=== PATIENT | female | born 1985 | race African-American/Black ===

== ENCOUNTER 2017-03-19 10:55 | Emergency (ER) | payer SELFPAY ==
[2017-03-19 11:03] VITALS: BP 116/67
--- NOTE | 2017-03-19 11:41 | PHYS DOC ---
Past Medical History Past Medical History: STD, Other Additional Past Medical Histor: BV, vaginal yeast infection Past Surgical History: Tubal ligation Alcohol Use: Rarely Drug Use: None Adult General Chief Complaint Chief Complaint: SKIN RASH/ABSCESS [facility] HPI Patient is a 31 year old female presents to the emergency department stating that she shaved her perineal area 1-2 days ago with intermittent shaving cream. She states since that time she's been having irritation and itching. She denies any vaginal drainage or discharge. She denies any odor. Patient states that she is very sensitive to things with that have progressed. Patient states that she has not tried to use any topical lotions or creams. She has not taken any Benadryl to help with the itching or irritation. Review of Systems Review of Systems Constitutional: Denies fever or chills [] Eyes: Denies change in visual acuity, redness, or eye pain [] HENT: Denies nasal congestion or sore throat [] Respiratory: Denies cough or shortness of breath [] Cardiovascular: No additional information not addressed in HPI [] GI: Denies abdominal pain, nausea, vomiting, bloody stools or diarrhea [] : Denies dysuria or hematuria. Complaint of vaginal irritation. Musculoskeletal: Denies back pain or joint pain [] Integument: Denies rash or skin lesions [] Neurologic: Denies headache, focal weakness or sensory changes [] Endocrine: Denies polyuria or polydipsia [] Allergies Allergies Allergies Coded Allergies Type Severity Reaction Last Updated Verified tramadol Allergy Intermediate THROAT ITCHING 10/22/14 Yes allantoin Allergy Mild Swelling 05/22/15 Yes benzalkonium chloride Allergy Mild Swelling 05/22/15 Yes benzocaine Allergy Mild Swelling 05/22/15 Yes carbamide peroxide Allergy Mild Swelling 05/22/15 Yes Physical Exam Physical Exam Constitutional: Well developed, well nourished, no acute distress, non-toxic appearance. [] HENT: Normocephalic, atraumatic, bilateral external ears normal, oropharynx moist, no oral exudates, nose normal. [] Eyes: PERRLA, EOMI, conjunctiva normal, no discharge. [] Neck: Normal range of motion, no tenderness, supple, no stridor. [] Cardiovascular:Heart rate regular rhythm, no murmur [] Lungs & Thorax: Bilateral breath sounds clear to auscultation [] Skin: Warm, dry, no erythema, no rash. No significant rash noted in the perineal area. Patient does appear to have shaved recently. No redness no drainage no discharge noted. Back: No tenderness Extremities: No tenderness, no cyanosis, no clubbing, ROM intact, no edema. [] Neurologic: Alert and oriented X 3, normal motor function, normal sensory function, no focal deficits noted. [] Psychologic: Affect normal, judgement normal, mood normal. [] Current Patient Data Vital Signs Vital Signs Date Time Temp Pulse Resp B/P (MAP) Pulse Ox O2 Delivery O2 Flow Rate FiO2 03/19/17 11:03 98.2 67 18 96 Room Air 98.2 EKG EKG [] Radiology/Procedures Radiology/Procedures [] Course & Med Decision Making Course & Med Decision Making Pertinent Labs and Imaging studies reviewed. (See chart for details) Patient was recommended to use Dove soap. She was also recommended to use Benadryl to help with itching and irritation. She was instructed this medication will cause drowsiness do not take any be alert and oriented. Patient agrees with discharge instructions, treatment regimens and follow-up recommendations. Signs and symptoms to return back to emergency department as been provided. All questions and concerns been answered at patient's bedside. [] Dragon Disclaimer Dragon Disclaimer This electronic medical record was generated, in whole or in part, using a voice recognition dictation system. Departure Departure Impression: Primary Impression: Perineal irritation Disposition: HOME, SELF-CARE Condition: STABLE Referrals: NO PCP (PCP) Patient Instructions: Rash, Timm-er-Rkjy Additional Instructions: Activity as tolerated. Benadryl 25 mg every 6 hours as needed for itching and irritation. This medication will cause drowsiness do not take any be alert and oriented. Keep the area clean dry and cool. You may use Dove soap to clean the area. Keep the area cool as this will prevent itching. Follow-up primary care physician next week. Return back to emergency prior signs symptoms of become worse. HIEN LEWIS APRN Mar 19, 2017 11:41
== END 2017-03-19 11:45 | disposition home or self-care (01) ==
LOC: ER 10:55
DX: L29.3 Anogenital pruritus, unspecified (principal); Z98.51 Tubal ligation status; Z88.6 Allergy status to analgesic agent; Z88.4 Allergy status to anesthetic agent; Z88.8 Allergy status to other drugs, medicaments and biological substances
CPT/HCPCS: 99281

== ENCOUNTER 2017-03-21 09:11 | Emergency (ER) | payer SELFPAY ==
[~2017-03-21] VITALS: Ht 170.2 cm; Wt 72.6 kg
--- NOTE | 2017-03-21 09:24 | PHYS DOC ---
Past Medical History Past Medical History: STD, Other Additional Past Medical Histor: BV, vaginal yeast infection Past Surgical History: Tubal ligation Alcohol Use: Rarely Drug Use: None Adult General Chief Complaint Chief Complaint: VAGINAL PROBLEM HPI HPI Patient is a 31 year old -[place] female who presents with vaginal discharge. She states she's been on amoxicillin for the last 6 days and 2 days ago started having a white vaginal discharge with itching. She denies any dysuria, she denies being . She tried Monistat at 2 AM this morning and stated she didn't feel any better so she decided to come the ER. Review of Systems Review of Systems Constitutional: Denies fever or chills [] Eyes: Denies change in visual acuity, redness, or eye pain [] HENT: Denies nasal congestion or sore throat [] Respiratory: Denies cough or shortness of breath [] Cardiovascular: No additional information not addressed in HPI [] GI: Denies abdominal pain, nausea, vomiting, bloody stools or diarrhea [] : Denies dysuria or hematuria [] Musculoskeletal: Denies back pain or joint pain [] Integument: Denies rash or skin lesions [] Neurologic: Denies headache, focal weakness or sensory changes [] Endocrine: Denies polyuria or polydipsia [] Current Medications Current Medications Current Medications Medications (Trade) Dose Ordered Sig/Griselda Start Time Stop Time Status Last Admin Dose Admin Fluconazole (Diflucan) 100 mg STK-MED ONCE 03/21/17 10:37 03/21/17 10:38 DC Allergies Allergies Allergies Coded Allergies Type Severity Reaction Last Updated Verified allantoin Allergy Intermediate Swelling 03/21/17 Yes benzalkonium chloride Allergy Intermediate Swelling 03/21/17 Yes benzocaine Allergy Intermediate Swelling 03/21/17 Yes carbamide peroxide Allergy Intermediate Swelling 03/21/17 Yes tramadol Allergy Intermediate THROAT ITCHING 10/22/14 Yes Physical Exam Physical Exam Constitutional: Well developed, well nourished, no acute distress, non-toxic appearance. [] HENT: Normocephalic, atraumatic, bilateral external ears normal, oropharynx moist, no oral exudates, nose normal. [] Eyes: PERRLA, EOMI, conjunctiva normal, no discharge. [] Neck: Normal range of motion, no tenderness, supple, no stridor. [] Cardiovascular:Heart rate regular rhythm, no murmur [] Lungs & Thorax: Bilateral breath sounds clear to auscultation [] Abdomen/pelvic: Bowel sounds normal, soft, no tenderness, no masses, no pulsatile masses. Normal external genitalia, no cervical motion tenderness, white thick discharge noted Skin: Warm, dry, no erythema, no rash. [] Back: No tenderness, no CVA tenderness. [] Extremities: No tenderness, no cyanosis, no clubbing, ROM intact, no edema. [] Neurologic: Alert and oriented X 3, normal motor function, normal sensory function, no focal deficits noted. [] Psychologic: Affect normal, judgement normal, mood normal. [] Current Patient Data Vital Signs Vital Signs Date Time Temp Pulse Resp B/P (MAP) Pulse Ox O2 Delivery O2 Flow Rate FiO2 03/21/17 09:32 98.4 75 16 124/91 (102) 98 Room Air 98.4 Lab Values Laboratory Tests Test 03/21/17 09:27 03/21/17 09:33 POC Urine HCG, Qualitative Hcg negative (Negative) Urine Collection Type Void Urine Color Yellow Urine Clarity Clear Urine pH 6.5 Urine Specific Morgan 1.010 Urine Protein Negative mg/dL (NEG-TRACE) Urine Glucose (UA) Negative mg/dL (NEG) Urine Ketones (Stick) Negative mg/dL (NEG) Urine Blood Negative (NEG) Urine Nitrite Negative (NEG) Urine Bilirubin Negative (NEG) Urine Urobilinogen Dipstick 0.2 mg/dL (0.2 mg/dL) Urine Leukocyte Esterase Negative (NEG) Urine RBC 0 /HPF (0-2) Urine WBC 0 /HPF (0-4) Urine Squamous Epithelial Cells Few /LPF Urine Bacteria 0 /HPF (0-FEW) Microbiology 03/21/17 Wet Prep - Final, Complete Microbiology 03/21/17 Wet Prep - Final, Complete EKG EKG [] Radiology/Procedures Radiology/Procedures RUN DATE: 03/21/17 PAGE 1 RUN TIME: 952 [facility] [address] [place] [address] Garry Duff M.D., Flat Bed Knitter PATIENT: MARIANA TAMAYO ACCT: [id number] LOC: LD U : [id number] AGE/SX: 31/ ROOM: REG : 03/21/[address]: CAIN BAILEY MD : 1985 BED: DIS : STATUS: PRE ER TLOC: SPEC #: [id number] CEASAR: 03/21/17 STATUS: COMP REQ #: [id number] RECD: 03/21/[address] [facility] [address]: CAIN BAILEY MD SOURCE: VAGINAL ENTR: 03/21/[address] [facility] [address]: AMRIK BALBUENA SPDESC: ORDERED: WET PREP COMMENTS: Has specimen been collected/obtained? Y Procedure Result WET PREP Final YEAST PRESENT TRICHOMONAS NONE SEEN CLUE CELLS NONE SEEN END OF REPORT Impressions: Vaginal yeast infection Course & Med Decision Making Course & Med Decision Making Pertinent Labs and Imaging studies reviewed. (See chart for details) Pelvic exam was performed with video production engineer, nurse Aide was present in addition to her at all times. She has yeast per lab. We'll treat with Diflucan 150 mg 1 and discharged home. She's to follow-up with [employer]. Return precautions given. Dragon Disclaimer Dragon Disclaimer This electronic medical record was generated, in whole or in part, using a voice recognition dictation system. Departure Departure Impression: Primary Impression: Vaginal yeast infection Disposition: HOME, SELF-CARE Condition: STABLE Referrals: NO PCP (PCP) Patient Instructions: Candidal Vulvovaginitis, [id number] Additional Instructions: You have a yeast infection we gave the 1 pill to treat it. You can use over-the- counter topical creams over the next couple days to help with the itching and burning. You should follow-up with your [employer] physician if not better within the next 4-5 days. CAIN BAILEY MD Mar 21, 2017 09:24
[2017-03-21 10:29] LABS: BILIRUBIN,URINE NEGATIVE (NEG); GLUCOSE,URINE NEGATIVE (NEG); NITRITE,URINE NEGATIVE (NEG); PH,URINE 6.5; PROTEIN,URINE NEGATIVE (NEG-TRACE); UROBILINOGEN,URINE 0.2 mg/dL (0.2 mg/dL)
[2017-03-21] MEDS ORDERED: FLUCONAZOLE 100 MG TABLET. ONE (10:37)
[2017-03-21 10:40] LABS: BACTERIA,URINE 0 /HPF (0-FEW); RBC,URINE 0 /HPF (0-2); SQUAMOUS EPITHELIAL CELL,UR FEW /LPF; WBC,URINE 0 /HPF (0-4)
[2017-03-21 10:45] VITALS: BP 114/78
[2017-03-21] MEDS ORDERED: FLUCONAZOLE 100 MG TABLET. PO ONE (10:45)
== END 2017-03-21 11:00 | disposition home or self-care (01) ==
LOC: ER 09:11
DX: B37.3 Candidiasis of vulva and vagina (principal); Z88.4 Allergy status to anesthetic agent; Z88.5 Allergy status to narcotic agent; Z88.8 Allergy status to other drugs, medicaments and biological substances
CPT/HCPCS: 81001; 81025; 87491; 87591; 99284; Q0111

== ENCOUNTER 2017-07-04 10:51 | Emergency (ER) | payer SELFPAY | END 2017-07-04 12:02 | disposition home or self-care (01) | LOC: ER 10:51 | DX: H10.9 Unspecified conjunctivitis (principal); Z88.8 Allergy status to other drugs, medicaments and biological substances; Z88.5 Allergy status to narcotic agent | CPT/HCPCS: 99283 ==

== ENCOUNTER 2017-10-03 14:04 | Emergency (ER) | payer SELFPAY ==
[2017-10-03] MEDS ORDERED: 0.9 % SODIUM CHLORIDE 10 ML DISP.SYRIN. IV (14:15)
[2017-10-03] MEDS: ASPIRIN CHEWABLE 81 MG TABLET. PO (14:30)
[2017-10-03] MEDS ORDERED: CONTRAST GIVEN MC (14:30)
[2017-10-03] MEDS: IV NORMAL SALINE 1000ML BAG 1,000 ML IV (14:40)
[2017-10-03 14:57] LABS: ADD MAN DIFF? NO
[2017-10-03 14:59] LABS: BASO % 1 % (0-3); EOS # 0.2 x10^3/uL (0.0-0.7); EOS % 4 % (0-3); HEMATOCRIT 37.9 % (36.0-47.0); HEMOGLOBIN 12.5 g/dL (12.0-15.5); LYMPH # 2.7 x10^3/uL (1.0-4.8); LYMPH % 47 % (24-48); MEAN CORPUSCULAR HEMOGLOBIN 27 pg (25-35); MEAN CORPUSCULAR HGB CONC 33 g/dL (31-37); MEAN CORPUSCULAR VOLUME 83 fL (79-100); MONO # 0.5 x10^3/uL (0.0-1.1); MONO % 10 % (0-9); NEUT # 2.2 x10^3uL (1.8-7.7); NEUT % 38 % (31-73); PLATELET COUNT 214 x10^3/uL (140-400); RED BLOOD COUNT 4.56 x10^6/uL (3.50-5.40); RED CELL DISTRIBUTION WIDTH 14.4 % (11.5-14.5); WHITE BLOOD COUNT 5.7 x10^3/uL (4.0-11.0)
[2017-10-03 15:17] LABS: ANION GAP 11 (6-14); BLOOD UREA NITROGEN 8 mg/dL (7-20); CALCIUM 8.7 mg/dL (8.5-10.1); CARBON DIOXIDE 23 mmol/L (21-32); CHLORIDE 105 mmol/L (98-107); CREATININE 0.7 mg/dL (0.6-1.0); GFR 118.9; GLUCOSE 96 mg/dL (70-99); POTASSIUM 3.5 mmol/L (3.5-5.1); SODIUM 139 mmol/L (136-145)
[2017-10-03 15:23] LABS: ALBUMIN 3.6 g/dL (3.4-5.0); ALK PHOS 47 U/L (46-116); ALT (SGPT) 22 U/L (14-59); AST (SGOT) 13 U/L (15-37); DIRECT BILIRUBIN < 0.1 mg/dL (0.0-0.2); LIPASE 88 U/L (73-393); MAGNESIUM 1.6 mg/dL (1.8-2.4); TOTAL BILIRUBIN 0.3 mg/dL (0.2-1.0); TOTAL PROTEIN 6.9 g/dL (6.4-8.2)
[2017-10-03 15:25] LABS: TROPONINI < 0.017 ng/mL (0.000-0.055)
[2017-10-03 15:31] LABS: CKMB INDEX 0.5 % (0-4); CKMB MASS 0.5 ng/mL (0.0-3.6); CREATINE KINASE 101 U/L (26-192)
[2017-10-03 15:31] LABS: NT-PRO BNP 22 pg/mL (0-124)
[2017-10-03] MEDS: IOHEXOL 300 MG/ML 100ML VIAL. IV (16:03)
[2017-10-03 16:14] LABS: URINE HCG POC HCG NEGATIVE (Negative)
[2017-10-03] MEDS: MORPHINE SULFATE 4 MG/ML DISP.SYRIN. IV/SQ (16:15)
[2017-10-03 16:29] LABS: BILIRUBIN,URINE NEGATIVE (NEG); CLARITY,URINE CLEAR; COLOR,URINE YELLOW; GLUCOSE,URINE NEGATIVE (NEG); NITRITE,URINE NEGATIVE (NEG); PH,URINE 6.5; PROTEIN,URINE NEGATIVE (NEG-TRACE); UROBILINOGEN,URINE 0.2 mg/dL (0.2 mg/dL)
[2017-10-03 16:41] LABS: AMPHETAMINE/METHAMPHETAMINE NEG (NEG); BARBITURATES NEG (NEG); BENZODIAZEPINES NEG (NEG); CANNABINOIDS NEG (NEG); COCAINE NEG (NEG); METHADONE NEG (NEG); OPIATES NEG (NEG); PHENCYCLIDINE NEG (NEG)
[2017-10-03 16:42] LABS: ETHANOL, URINE NEG (NEG)
[2017-10-03 17:25] LABS: BACTERIA,URINE 0 /HPF (0-FEW); RBC,URINE 0 /HPF (0-2); SQUAMOUS EPITHELIAL CELL,UR FEW /LPF; WBC,URINE OCC /HPF (0-4)
== END 2017-10-03 19:00 | disposition home or self-care (01) ==
LOC: ER 14:04
DX: R42 Dizziness and giddiness (principal); R07.89 Other chest pain; F17.210 Nicotine dependence, cigarettes, uncomplicated; Z98.51 Tubal ligation status; Z88.5 Allergy status to narcotic agent; Z88.4 Allergy status to anesthetic agent; Z88.8 Allergy status to other drugs, medicaments and biological substances
CPT/HCPCS: 36415; 71046; 71275; 80048; 80076; 80307; 81001; 81025; 82553; 83690; 83735; 83880; 84484; 85025; 93005; 96361; 96374; 96375; 99285-25; J2060; J2270; J7030; Q9967

== ENCOUNTER 2018-10-11 00:29 | Emergency (ER) | payer SELFPAY ==
[~2018-10-11] VITALS: Ht 170.2 cm; Wt 54.4 kg
[~2018-10-11 00:29] MED LIST: OFLO5DRO EACHEYE
[2018-10-11 00:50] VITALS: BP 126/83
[2018-10-11] MEDS ORDERED: BUTALB/APAP/CAFEIN 50/325/40MG TABLET. PO ONE (01:15)
[2018-10-11] MEDS ORDERED: DEXAMETHASONE 4 MG TABLET PO ONE (01:15)
--- NOTE | 2018-10-11 01:15 | PHYS DOC ---
Past Medical History Past Medical History: STD, Other Additional Past Medical Histor: BV Past Surgical History: Tubal ligation Alcohol Use: None Drug Use: None Adult General Chief Complaint Chief Complaint: HEADACHE HPI HPI Patient is a 33 year old female who presents with headache. Patient states on Friday she hit her head on a vanity mirror. She denied any loss of consciousness. She states ever since Friday she has had pain on the crown of her head that is sharp in nature with no radiation. It is a 4/10. She advil this evening with no relief of her symptoms. She is reporting some nausea, dizziness and blurry vision ever since hitting her head. Patient denies any vomiting or lightheadedness. Review of Systems Review of Systems Constitutional: Denies fever or chills [] Eyes: Reports blurry vision, denies redness or eye pain [] HENT: Reports head pain, denies nasal congestion or sore throat [] Respiratory: Denies cough or shortness of breath [] Cardiovascular: As chest pain or palpitations[] GI: Reports nausea, denies abdominal pain, vomiting [] : Denies dysuria or hematuria [] Musculoskeletal: Denies back pain or joint pain [] Integument: Denies rash or skin lesions [] Neurologic: Reports headache, denies focal weakness[] Complete systems were reviewed and found to be within normal limits, except as documented in this note. Current Medications Current Medications Current Medications Medications (Trade) Dose Ordered Sig/Griselda Start Time Stop Time Status Last Admin Dose Admin Acetaminophen/ Butalbital/ Caffeine (Fioricet) 1 tab 1X ONCE 10/11/18 01:15 10/11/18 01:16 DC Dexamethasone (Decadron) 10 mg 1X ONCE 10/11/18 01:15 10/11/18 01:16 DC Allergies Allergies Allergies Coded Allergies Type Severity Reaction Last Updated Verified allantoin Allergy Intermediate Swelling 03/21/17 Yes benzalkonium chloride Allergy Intermediate Swelling 03/21/17 Yes benzocaine Allergy Intermediate Swelling 03/21/17 Yes carbamide peroxide Allergy Intermediate Swelling 03/21/17 Yes tramadol Allergy Intermediate THROAT ITCHING 10/03/17 Yes Physical Exam Physical Exam Constitutional: No acute distress, non-toxic appearance. [] HENT: Normocephalic, atraumatic, bilateral external ears normal, no hemo- tympany. [] Eyes: PERRLA, EOMI, conjunctiva normal. [] Neck: Normal range of motion, no tenderness. [] Cardiovascular:Heart rate regular rhythm, no murmur [] Lungs & Thorax: Bilateral breath sounds clear to auscultation [] Abdomen: Bowel sounds normal, soft, no tenderness. [] Skin: Warm, dry, no erythema. [] Back: No tenderness, no CVA tenderness. [] Extremities: No tenderness, no cyanosis, no edema. [] Neurologic: Alert and oriented X 3, normal motor function, normal sensory function, no focal deficits noted, cranial nerves 2 through 12 grossly intact bilaterally. [] Psychologic: Affect normal, mood normal. [] Current Patient Data Vital Signs Vital Signs Date Time Temp Pulse Resp B/P (MAP) Pulse Ox O2 Delivery O2 Flow Rate FiO2 10/11/18 00:50 98.5 80 16 126/83 (97) 100 Room Air 98.5 EKG EKG [] Radiology/Procedures Radiology/Procedures [] Course & Med Decision Making Course & Med Decision Making 33-year-old female presented to the emergency department with headache. Patient states she hit her head on Friday with no loss of consciousness. She is reporting some double vision and nausea since the event. On exam patient was neurologically intact. Due to exam findings as well as patient not being on any blood thinners CT of head was foregone. Symptomatic treatment provided with interval improvement. Provided patient with work note. Patient stable for discharge with outpatient follow-up with PCP. Discussed findings and plan with patient and family, who acknowledge understanding and agreement. [] Dragon Disclaimer Dragon Disclaimer This electronic medical record was generated, in whole or in part, using a voice recognition dictation system. Departure Departure Impression: Primary Impression: Head contusion Additional Impression: Headache Disposition: HOME, SELF-CARE Condition: STABLE Referrals: NO PCP (PCP) Patient Instructions: Facial or Scalp Contusion, [id number], Headache, FAQs Additional Instructions: Use over the counter Ibuprofen. ICE area of injury 20 mins then off 20 mins and repeat as needed for next few days. Scripts Butalb/Acetaminophen/Caffeine ([id number] [id number]) 1 Each Tablet 1 EACH PO Q6HRS PRN for HEADACHE, #10 TAB Prov: EVARISTO ARGUETA DO 10/11/18 Problem Qualifiers Primary Impression: Head contusion Encounter type: initial encounter Contusion of head detail: scalp Qualified Codes: S00.03XA - Contusion of scalp, initial encounter Additional Impression: Headache Headache type: unspecified Headache chronicity pattern: acute headache Intractability: not intractable Qualified Codes: R51 - Headache EVARISTO ARGUETA DO Oct 11, 2018 01:15
[2018-10-11] MEDS ORDERED: BUTA1TAB23 PO (01:33)
== END 2018-10-11 01:44 | disposition home or self-care (01) ==
LOC: ER 00:29
DX: S00.03XA Contusion of scalp, initial encounter (principal); Z98.51 Tubal ligation status; Z88.8 Allergy status to other drugs, medicaments and biological substances; Z88.5 Allergy status to narcotic agent; W22.8XXA Striking against or struck by other objects, initial encounter; Y93.89 Activity, other specified; Y92.89 Other specified places as the place of occurrence of the external cause; Y99.8 Other external cause status
CPT/HCPCS: 99283; J8540

== ENCOUNTER 2018-10-17 00:18 | Emergency (ER) | payer SELFPAY ==
[~2018-10-17] VITALS: Ht 170.2 cm; Wt 72.6 kg
[~2018-10-17 00:18] MED LIST changes: +BUTA1TAB23 PO
[2018-10-17 00:48] VITALS: BP 135/65
[2018-10-17] MEDS ORDERED: DIPH25CA58 PO (02:07)
[2018-10-17] MEDS ORDERED: PRED20TA PO (02:07)
--- NOTE | 2018-10-17 02:07 | PHYS DOC ---
Past Medical History Past Medical History: Other Additional Past Medical Histor: heart murmur Past Surgical History: Tubal ligation Alcohol Use: None Drug Use: None Adult General Chief Complaint Chief Complaint: ALLERGIC REACTION HPI HPI Patient is a 33 year old [f__sex] who presents with [] Review of Systems Review of Systems Constitutional: Denies fever or chills [] Eyes: Denies change in visual acuity, redness, or eye pain [] HENT: Denies nasal congestion or sore throat [] Respiratory: Denies cough or shortness of breath [] Cardiovascular: No additional information not addressed in HPI [] GI: Denies abdominal pain, nausea, vomiting, bloody stools or diarrhea [] : Denies dysuria or hematuria [] Musculoskeletal: Denies back pain or joint pain [] Integument: Denies rash or skin lesions [] Neurologic: Denies headache, focal weakness or sensory changes [] Endocrine: Denies polyuria or polydipsia [] All other systems were reviewed and found to be within normal limits, except as documented in this note. Allergies Allergies Allergies Coded Allergies Type Severity Reaction Last Updated Verified allantoin Allergy Intermediate Swelling 03/21/17 Yes benzalkonium chloride Allergy Intermediate Swelling 03/21/17 Yes benzocaine Allergy Intermediate Swelling 03/21/17 Yes carbamide peroxide Allergy Intermediate Swelling 03/21/17 Yes tramadol Allergy Intermediate THROAT ITCHING 10/03/17 Yes Physical Exam Physical Exam Constitutional: Well developed, well nourished, no acute distress, non-toxic appearance. [] HENT: Normocephalic, atraumatic, bilateral external ears normal, oropharynx moist, no oral exudates, nose normal. [] Eyes: PERRLA, EOMI, conjunctiva normal, no discharge. [] Neck: Normal range of motion, no tenderness, supple, no stridor. [] Cardiovascular:Heart rate regular rhythm, no murmur [] Lungs & Thorax: Bilateral breath sounds clear to auscultation [] Abdomen: Bowel sounds normal, soft, no tenderness, no masses, no pulsatile masses. [] Skin: Warm, dry, no erythema, no rash. [] Back: No tenderness, no CVA tenderness. [] Extremities: No tenderness, no cyanosis, no clubbing, ROM intact, no edema. [] Neurologic: Alert and oriented X 3, normal motor function, normal sensory function, no focal deficits noted. [] Psychologic: Affect normal, judgement normal, mood normal. [] Current Patient Data Vital Signs Vital Signs Date Time Temp Pulse Resp B/P (MAP) Pulse Ox O2 Delivery O2 Flow Rate FiO2 10/17/18 00:48 98.3 73 14 135/65 (88) 99 98.3 EKG EKG [] Radiology/Procedures Radiology/Procedures [] Course & Med Decision Making Course & Med Decision Making Pertinent Labs and Imaging studies reviewed. (See chart for details) [] Dragon Disclaimer Dragon Disclaimer This electronic medical record was generated, in whole or in part, using a voice recognition dictation system. Departure Departure Impression: Primary Impression: Allergic reaction Disposition: HOME, SELF-CARE Condition: STABLE Referrals: NO PCP (PCP) Patient Instructions: Drug Allergy, Xekg-di-Rfpo, Food Allergy, Igzu-fc-Ubeq Additional Instructions: It is uncertain what caused your allergic reaction. It typically is caused by either food or a medication. Sometimes it can also be from something you came in contact with. Unfortunately, we are unable to test for these allergies in the ED. You have been given medication to help control this reaction. Return for worsening of condition or for difficulty breathing. Scripts Diphenhydramine Hcl (BENADRYL) 25 Mg Capsule 25 MG PO Q4-6HRS PRN for ALLERGIES, #20 CAP Prov: EVARISTO ARGUETA DO 10/17/18 Prednisone (PREDNISONE) 20 Mg Tablet 2 TAB PO DAILY, #8 TAB Start this medication tomorrow, Friday10/18/18 Prov: EVARISTO ARGUETA DO 10/17/18 Problem Qualifiers Primary Impression: Allergic reaction Encounter type: initial encounter Qualified Codes: T78.40XA - Allergy, unspecified, initial encounter EVARISTO ARGUETA DO Oct 17, 2018 02:07
[2018-10-17] MEDS ORDERED: DEXAMETHASONE 4 MG TABLET PO ONE (02:30)
[2018-10-17] MEDS ORDERED: diphenhydrAMINE HCL 25 MG CAPSULE PO ONE (02:30)
== END 2018-10-17 02:15 | disposition home or self-care (01) ==
LOC: ER 00:18
DX: T78.40XA Allergy, unspecified, initial encounter (principal); Z98.51 Tubal ligation status; Z88.8 Allergy status to other drugs, medicaments and biological substances; Z88.5 Allergy status to narcotic agent; X58.XXXA Exposure to other specified factors, initial encounter
CPT/HCPCS: 99283; J8540; Q0163

== ENCOUNTER 2018-11-22 22:59 | Emergency (ER) | payer SELFPAY ==
[~2018-11-22 22:59] MED LIST changes: +DIPH25CA58 PO; +PRED20TA PO
== END 2018-11-22 23:50 | disposition left against medical advice (07) ==
LOC: ER 22:59
DX: M79.89 Other specified soft tissue disorders (principal); Z53.21 Procedure and treatment not carried out due to patient leaving prior to being seen by health care provider

== ENCOUNTER 2019-03-26 16:48 | Emergency (ER) | payer SELFPAY ==
[~2019-03-26] VITALS: Ht 170.2 cm; Wt 71.2 kg
[~2019-03-26 16:48] MED LIST changes: +HYDR-3164 PO; +IBUP-1007 PO; +METH4TAB2 PO
[2019-03-26 17:20] VITALS: BP 120/81
[2019-03-26] MEDS ORDERED: FLUC150T PO (17:30)
--- NOTE | 2019-03-26 17:31 | PHYS DOC ---
Past Medical History Past Medical History: Other Additional Past Medical Histor: heart murmur (TRUONG NGUYEN APRN) Past Surgical History: Tubal ligation (TRUONG NGUYEN APRN) Alcohol Use: None Drug Use: None (TRUONG NGUYEN APRN) Adult General Chief Complaint Chief Complaint: VAGINAL PROBLEM HPI HPI Patient is a 33 year old female who presents with concern for vaginal yeast infection. Patient states she was started on amoxicillin on March 15, 2019 for dental infection, she developed a rash, the dentist switched from amoxicill in to clindamycin which she started taking yesterday. She states she also noted vaginal discharge, she is concerned she has a yeast infection. She states she has been using OTC miconazole with no relief. (TRUONG NGUYEN APRN) Review of Systems Review of Systems Constitutional: Denies fever or chills [] GI: Denies abdominal pain, nausea, vomiting, bloody stools or diarrhea [] Reports vaginal discharge and concern for yeast infection : Denies dysuria or hematuria [] Musculoskeletal: Denies back pain or joint pain [] Integument: Denies rash or skin lesions [] Neurologic: Denies headache, focal weakness or sensory changes [] All other systems were reviewed and found to be within normal limits, except as documented in this note. (TRUONG NGUYEN APRN) Allergies Allergies Allergies Coded Allergies Type Severity Reaction Last Updated Verified allantoin Allergy Intermediate Swelling 03/21/17 Yes benzalkonium chloride Allergy Intermediate Swelling 03/21/17 Yes benzocaine Allergy Intermediate Swelling 03/21/17 Yes carbamide peroxide Allergy Intermediate Swelling 03/21/17 Yes tramadol Allergy Intermediate THROAT ITCHING 10/03/17 Yes (PRISCILLA NAZARIO MD) Physical Exam Physical Exam Constitutional: Well developed, well nourished, no acute distress, non-toxic appearance. [] Abdomen: Bowel sounds normal, soft, no tenderness, no masses, no pulsatile masses. [] Skin: Warm, dry, no erythema, no rash. [] Back: No tenderness, no CVA tenderness. [] Extremities: No tenderness, no cyanosis, no clubbing, ROM intact, no edema. [] Neurologic: Alert and oriented X 3, normal motor function, normal sensory funct ion, no focal deficits noted. [] Psychologic: Affect normal, judgement normal, mood normal. [] (TRUONG NGUYEN APRN) Current Patient Data Vital Signs Vital Signs Date Time Temp Pulse Resp B/P (MAP) Pulse Ox O2 Delivery O2 Flow Rate FiO2 03/26/19 17:20 98.4 76 12 120/81 (94) 97 Room Air 98.4 (PRISCILLA NAZARIO MD) Lab Values Laboratory Tests Test 03/26/19 17:04 POC Urine HCG, Qualitative Hcg negative (Negative) (PRISCILLA NAZARIO MD) EKG EKG [] (TRUONG NGUYEN APRN) Radiology/Procedures Radiology/Procedures [] (TRUONG NGUYEN APRN) Course & Med Decision Making Course & Med Decision Making Pertinent Labs and Imaging studies reviewed. (See chart for details) This is a 33-year-old female patient presenting to the ED today with vaginal discharge concern for yeast infection after starting antibiotics. Patient will be discharged with Diflucan, encouraged patient to take probiotics and suxp-gks-dacwqml-yogurt. (TRUONG NGUYEN APRN) Dragon Disclaimer Dragon Disclaimer This electronic medical record was generated, in whole or in part, using a voice recognition dictation system. (TRUONG NGUYEN APRN) Departure Departure Impression: Primary Impression: Candidiasis Disposition: HOME, SELF-CARE Condition: STABLE Referrals: NO PCP (PCP) follow up with your doctor in one week Patient Instructions: Esther Infection, Adult Additional Instructions: You were evaluated in the emergency room with symptoms consistent of candidiasis infection. This is not unusual when you're taking antibiotics as discussed please continue using cmun-fda-jrakufu miconazole inserts. Please take yogurt 3 times a day. Also take probiotics. Continue taking your antibiotics for the dental infection until completed. Follow-up with your PCP or [facility] [facility] in 1-2 weeks as needed. Scripts Fluconazole (DIFLUCAN) 150 Mg Tablet 1 TAB PO ONCE, #1 TAB 1 Refill Take one today and repeat in 7 days Prov: TRUONG NGUYEN APRN 03/26/19 Attending Signature I have participated in the care of this patient and I have reviewed and agree with all pertinent clinical information above including history, exam, and recommendations. (PRISCILLA NAZARIO MD) TRUONG NGUYEN APRN Mar 26, 2019 17:30 PRISCILLA NAZARIO MD Mar 27, 2019 18:46
== END 2019-03-26 18:00 | disposition home or self-care (01) ==
LOC: ER 16:48
DX: B37.3 Candidiasis of vulva and vagina (principal); Z88.6 Allergy status to analgesic agent; Z88.8 Allergy status to other drugs, medicaments and biological substances
CPT/HCPCS: 81025; 99283

== ENCOUNTER 2019-11-30 07:37 | Emergency (ER) | payer SELFPAY ==
[~2019-11-30] VITALS: Ht 171.4 cm; Wt 79.3 kg
[~2019-11-30 07:37] MED LIST changes: +FLUC150T PO
[2019-11-30 08:13] LABS: BILIRUBIN,URINE NEGATIVE (NEG); CLARITY,URINE CLEAR; COLOR,URINE YELLOW; NITRITE,URINE NEGATIVE (NEG); PROTEIN,URINE NEGATIVE (NEG-TRACE)
[2019-11-30 08:19] LABS: SQUAMOUS EPITHELIAL CELL,UR MANY /LPF
[2019-11-30 08:20] LABS: BACTERIA,URINE 0 /HPF (0-FEW); WBC,URINE 0 /HPF (0-4)
[2019-11-30] MEDS ORDERED: diphenhydrAMINE HCL 25 MG CAPSULE PO ONE (09:15)
[2019-11-30] MEDS ORDERED: IV NORMAL SALINE 1000ML BAG 1,000 ML IV ONE (09:15)
[2019-11-30] MEDS ORDERED: PROCHLORPERAZINE 10 MG/2 ML VIAL. IV ONE (09:15)
[2019-11-30] MEDS ORDERED: DEXAMETHASONE SOD PHOS 4 MG/ML VIAL IVP ONE (09:15)
--- NOTE | 2019-11-30 10:35 | PHYS DOC ---
Past Medical History Past Medical History: Sciatica, Other Additional Past Medical Histor: heart murmur Past Surgical History: Tubal ligation Smoking Status: Current Every Day Smoker Alcohol Use: None Drug Use: None General Adult EDM: Chief Complaint: PELVIC PAIN HPI: HPI: Patient is a 34 year old female who presents with irregular bleeding. Patient states that she had a period earlier this month and then started bleeding again over the last few days. She has been having a lot of pelvic cramping. She denies any discharge or foul smell. She is not had any fever. She is also had a headache. She does get headaches about once a month. This does not feel any different than previous headaches. She does not have sudden onset severe headache. She does not have any numbness, weakness, neck stiffness, chills, sweats. Review of Systems: Review of Systems: General: Denies fever, chills, sweats, fatigue Eyes: Denies drainage, blurred vision HENT: Denies rhinorrhea, sore throat Respiratory: Denies cough, shortness of breath, wheezing Cardiac: Denies edema, palpitations, chest pain GI: Denies abdominal pain, N/V MSK: Denies back pain, neck pain Skin: Denies rash, jaundice Neuro: Denies dizziness reports headache Psychiatric: Denies SI/HI Heart Score: Risk Factors: Risk Factors: DM, Current or recent (<one month) smoker, HTN, HLP, family history of CAD, obesity. Risk Scores: Score 0 - 3: 2.5% MACE over next 6 weeks - Discharge Home Score 4 - 6: 20.3% MACE over next 6 weeks - Admit for Clinical Observation Score 7 - 10: 72.7% MACE over next 6 weeks - Early Invasive Strategies Current Medications: Current Medications Medications (Trade) Dose Ordered Sig/Griselda Start Time Stop Time Status Last Admin Dose Admin Dexamethasone Sodium Phosphate (Decadron) 10 mg 1X ONCE 11/30/19 09:15 11/30/19 09:16 DC 11/30/19 10:08 10 MG Diphenhydramine HCl (Benadryl) 25 mg 1X ONCE 11/30/19 09:15 11/30/19 09:16 DC 11/30/19 10:01 25 MG Prochlorperazine Edisylate (Compazine) 10 mg 1X ONCE 11/30/19 09:15 11/30/19 09:16 DC 11/30/19 10:01 10 MG Sodium Chloride 1,000 ml @ 0 mls/hr 1X ONCE 11/30/19 09:15 11/30/19 09:16 DC 11/30/19 10:00 1,000 MLS/HR Allergies: Allergies: Allergies Coded Allergies Type Severity Reaction Last Updated Verified allantoin Allergy Intermediate Swelling 03/21/17 Yes benzalkonium chloride Allergy Intermediate Swelling 03/21/17 Yes benzocaine Allergy Intermediate Swelling 03/21/17 Yes carbamide peroxide Allergy Intermediate Swelling 03/21/17 Yes tramadol Allergy Intermediate THROAT ITCHING 10/03/17 Yes Uncoded Allergies Type Severity Reaction Last Updated Verified PRESIDENTIAL HELICOPTER CREW CHIEF WIPES Allergy Intermediate FACIAL SWELLING 11/30/19 Physical Exam: PE: Constitutional: Well developed, well nourished, no acute distress, non-toxic appearance. HENT: Normocephalic, atraumatic, bilateral external ears normal, nose normal. Eyes: PERRLA, EOMI, conjunctiva normal, no discharge. Neck: Normal range of motion, no stridor. Cardiovascular: Heart rate regular rhythm Lungs & Thorax: Respirations even and unlabored, no retractions, no respiratory distress Pelvic Exam: Veterinary Medical Officer present Abdomen: Nontender, soft External Genitalia: Normal Skin Speculum: Normal vaginal mucosa, dark blood in vault, cervix pink without lesions Bimanual: No adnexal masses or tenderness, No CMT Skin: Warm, dry, no erythema, no rash. Back: No tenderness Extremities: No cyanosis, ROM intact, no edema. Neurologic: Alert and oriented X 3, no focal deficits noted, CN 2-12 intact Psychologic: Affect normal, judgement normal, mood normal. Current Patient Data: Labs: Laboratory Tests Test 11/30/19 07:58 11/30/19 08:01 POC Urine HCG, Qualitative Hcg negative (Negative) Urine Collection Type Void Urine Color Yellow Urine Clarity Clear Urine pH 6.0 (<5.0-8.0) Urine Specific [place] 1.015 (1.000-1.030) Urine Protein Negative mg/dL (NEG-TRACE) Urine Glucose (UA) Negative mg/dL (NEG) Urine Ketones (Stick) Negative mg/dL (NEG) Urine Blood Large (NEG) Urine Nitrite Negative (NEG) Urine Bilirubin Negative (NEG) Urine Urobilinogen Dipstick 1.0 mg/dL (0.2 mg/dL) Urine Leukocyte Esterase Negative (NEG) Urine RBC 11-20 /HPF (0-2) Urine WBC 0 /HPF (0-4) Urine Squamous Epithelial Cells Many /LPF Urine Bacteria 0 /HPF (0-FEW) Vital Signs: Vital Signs Date Time Temp Pulse Resp B/P (MAP) Pulse Ox O2 Delivery O2 Flow Rate FiO2 11/30/19 07:50 98.1 76 14 129/80 (96) 100 Room Air 98.1 EKG: EKG: [] Radiology/Procedures: Radiology/Procedures: [] Course & Med Decision Making: Course & Med Decision Making Pertinent Labs and Imaging studies reviewed. (See chart for details) Patient is a 34-year-old female who presents to the emergency room complaining of irregular vaginal bleeding. test is negative. Patient has had a tubal ligation. Pelvic exam appears normal. Swabs were sent. She has no concerns for sexually transmitted diseases. I discussed with her that she needs to follow-up with SURVEY RESEARCH TEACHER to have further testing. I have discussed with her that she may need to have an ultrasound in the future as it is possible she could have fibroids. We have discussed the signs and symptoms of anemia. Patient's headache is typical for her headaches. She does not have any neurologic deficits. She does not have any symptoms that are suggestive of infection. She was treated symptomatically. Patient's test results and vitals while in the ED were fully reviewed and discussed with the patient. Patient is stable and at this time does not need admission to the hospital. We have discussed strict return precautions and the importance of following up with their Primary Care Physician. Patient stated understanding and was given an opportunity to ask any questions. Dragon Disclaimer: Dragon Disclaimer: This electronic medical record was generated, in whole or in part, using a voice recognition dictation system. Departure Departure Impression: Primary Impression: Headache Additional Impression: Dysfunctional uterine bleeding Referrals: [facility] Patient Instructions: Dysmenorrhea, [id number] MANUELA MERCER MD November 30, 2019 10:35
[2019-11-30 10:50] VITALS: BP 114/68
[2019-12-01 19:09] LABS: GC PROBE Negative (Negative)
== END 2019-11-30 11:02 | disposition home or self-care (01) ==
LOC: ER 07:37
DX: N93.8 Other specified abnormal uterine and vaginal bleeding (principal); R51 Headache; R10.2 Pelvic and perineal pain; F17.200 Nicotine dependence, unspecified, uncomplicated; Z98.51 Tubal ligation status; Z88.6 Allergy status to analgesic agent; Z88.8 Allergy status to other drugs, medicaments and biological substances
CPT/HCPCS: 81001; 81025; 87491; 87591; 96374; 96375; 99284; J0780; J1100; J7030; Q0111; Q0163

== ENCOUNTER 2020-09-10 18:10 | Emergency (ER) | payer OTHER ==
[~2020-09-10] VITALS: Ht 170.2 cm; Wt 84.5 kg
[2020-09-10 18:54] VITALS: BP 169/75
[2020-09-10] MEDS ORDERED: METH4TAB2 PO (19:20)
[2020-09-10] MEDS ORDERED: CYCL10TA2 PO (19:20)
--- NOTE | 2020-09-10 19:20 | PHYS DOC ---
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 Patient denies any injuries. She states she is already been seen by her PCP for this pain before and is currently on Lyrica and ibuprofen with no significant relief. Denies any loss of bowel/bladder function. Reports numbness to the right toes. States this is chronic as well. Review of Systems: Review of Systems: Constitutional: Denies fever or chills. [] GI: Denies abdominal pain, nausea, vomiting, bloody stools or diarrhea. [] : Denies dysuria. [] Musculoskeletal: Reports right low back pain, pain to the right lower extremity. Integument: Denies rash. [] Neurologic: Denies headache, focal weakness or sensory changes. [] Psychiatric: Denies depression or anxiety. [] Heart Score: C/O Chest Pain: N/A Risk Factors: Risk Factors: DM, Current or recent (<one month) smoker, HTN, HLP, family history of CAD, obesity. Risk Scores: Score 0 - 3: 2.5% MACE over next 6 weeks - Discharge Home Score 4 - 6: 20.3% MACE over next 6 weeks - Admit for Clinical Observation Score 7 - 10: 72.7% MACE over next 6 weeks - Early Invasive Strategies Allergies: Allergies: Allergies Coded Allergies Type Severity Reaction Last Updated Verified Penicillins Allergy Intermediate rash 09/10/20 Yes allantoin Allergy Intermediate Swelling 03/21/17 Yes benzalkonium chloride Allergy Intermediate Swelling 03/21/17 Yes benzocaine Allergy Intermediate Swelling 03/21/17 Yes carbamide peroxide Allergy Intermediate Swelling 03/21/17 Yes tramadol Allergy Intermediate THROAT ITCHING 10/03/17 Yes Uncoded Allergies Type Severity Reaction Last Updated Verified PROFESSOR OF PHYSICS WIPES Allergy Intermediate FACIAL SWELLING 11/30/19 Physical Exam: PE: Constitutional: Well developed, well nourished, no acute distress, non-toxic appearance. [] Skin: Warm, dry, no erythema, no rash. [] Back: No tenderness, no CVA tenderness. Positive straight leg raise at roughly 30 degrees to the right lower extremity Extremities: No tenderness, no cyanosis, no clubbing, ROM intact, no edema. [] Neurologic: Alert and oriented X 3, normal motor function, normal sensory function, no focal deficits noted. [] Psychologic: Affect normal, judgement normal, mood normal. [] Current Patient Data: Vital Signs: Vital Signs Date Time Temp Pulse Resp B/P (MAP) Pulse Ox O2 Delivery O2 Flow Rate FiO2 09/10/20 18:54 98.4 92 20 169/75 (106) 99 Room Air 98.4 EKG: EKG: [] Radiology/Procedures: Radiology/Procedures: [] Course & Med Decision Making: Course & Med Decision Making Pertinent Labs and Imaging studies reviewed. 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 Patient just started a new job yesterday and would like a note for work. She is currently on Lyrica and ibuprofen for her pain. She has no cauda equina syndrome symptoms. Give a prescription for cyclobenzaprine and Medrol Dosepak and instructed to continue following up with her own PCP. Note for work for today and tomorrow provided. Dave Disclaimer: Dave Disclaimer: This electronic medical record was generated, in whole or in part, using a voice recognition dictation system. Departure Departure Impression: Primary Impression: Sciatica, right side Disposition: 01 DC HOME SELF CARE/HOMELESS Condition: STABLE Referrals: NO PCP (PCP) follow up with your doctor in 1 week Patient Instructions: Sciatica, [id number] Additional Instructions: You were seen for sciatic pain. Please follow-up with your own doctor next week. Consider using a heating pad to your low back and right lower extremity. Scripts Cyclobenzaprine Hcl (CYCLOBENZAPRINE HCL) 10 Mg Tablet 1 TAB PO TID, #30 TAB Prov: TRUONG NGUYEN APRN 09/10/20 Methylprednisolone (MEDROL) 4 Mg Tab.ds.pk 1 PKG PO UD, #1 PKG Prov: TRUONG NGUYEN APRN 09/10/20 RTUONG NGUYEN APRN Sep 10, 2020 19:20
== END 2020-09-10 19:28 | disposition home or self-care (01) ==
LOC: ER 18:10
DX: M54.31 Sciatica, right side (principal); M79.661 Pain in right lower leg; F41.9 Anxiety disorder, unspecified; F17.200 Nicotine dependence, unspecified, uncomplicated; Z98.51 Tubal ligation status; Z88.0 Allergy status to penicillin; Z88.8 Allergy status to other drugs, medicaments and biological substances; Z88.6 Allergy status to analgesic agent
CPT/HCPCS: 99283

== ENCOUNTER 2021-07-13 14:15 | Emergency (ER) | payer OTHER ==
[~2021-07-13] VITALS: Ht 170.2 cm; Wt 102.7 kg
[~2021-07-13 14:15] MED LIST changes: +CYCL10TA19 PO
--- NOTE | 2021-07-13 15:45 | PHYS DOC ---
Past Medical History Past Medical History: Anxiety, Sciatica, Other Additional Past Medical Histor: heart murmur, RESTLESS LEG SYNDROME Past Surgical History: Tubal ligation Smoking Status: Current Every Day Smoker Alcohol Use: None Drug Use: None Adult General Chief Complaint Chief Complaint: DIZZY/LIGHT HEADED HPI HPI Patient is a 36 year old female presenting to emergency department for evaluation of multiple complaints including headache dizziness and upper and lower extremity swelling in the setting of starting working in [employer] 3 days ago. She says she is up on her feet for at least 10 hours a day and she says whenever she sits up or stands up she feels intense lightheaded sensation to the point where she has almost passed out. She says the headache started today and is pounding frontal bilateral and says it is similar to prior headaches that she has had in the past that she does get frequent headaches but has never been diagnosed with a headache disorder. She says that her upper and lower extremity swelling has been worse at times as there is no obvious swelling at this time. She says that her blood pressure has been elevated as well which is not normal for her. She denies chest pain vision changes confusion shortness of breath cough fevers chills unilateral weakness numbness or tingling. She is in no acute distress with normal vital signs other than hypertension noted. Review of Systems Review of Systems Constitutional: Denies fever or chills [] Eyes: Denies change in visual acuity, redness, or eye pain [] HENT: Denies nasal congestion or sore throat [] Respiratory: Denies cough or shortness of breath [] Cardiovascular: No additional information not addressed in HPI [] GI: Denies abdominal pain, nausea, vomiting, bloody stools or diarrhea [] : Denies dysuria or hematuria [] Musculoskeletal: Denies back pain or joint pain [] Integument: Denies rash or skin lesions [] Neurologic: + headache. No focal weakness or sensory changes. + dizziness Endocrine: Denies polyuria or polydipsia [] All other systems were reviewed and found to be within normal limits, except as documented in this note. Current Medications Current Medications Current Medications Medications (Trade) Dose Ordered Sig/Griselda Start Time Stop Time Status Last Admin Dose Admin Dextrose/Lactated Ringer's 1,000 ml @ 999 mls/hr 1X ONCE 07/13/21 16:15 07/13/21 16:05 DC Ketorolac Tromethamine (Toradol 30mg Vial) 15 mg 1X ONCE 07/13/21 16:00 07/13/21 16:03 DC 07/13/21 16:33 15 MG Morphine Sulfate (Morphine Sulfate) 4 mg 1X PRN 07/13/21 16:00 Ondansetron HCl (Zofran) 4 mg 1X ONCE 07/13/21 16:00 07/13/21 16:03 DC 07/13/21 16:33 4 MG Allergies Allergies Allergies Coded Allergies Type Severity Reaction Last Updated Verified Penicillins Allergy Intermediate rash 09/10/20 Yes allantoin Allergy Intermediate Swelling 03/21/17 Yes benzalkonium chloride Allergy Intermediate Swelling 03/21/17 Yes benzocaine Allergy Intermediate Swelling 03/21/17 Yes carbamide peroxide Allergy Intermediate Swelling 03/21/17 Yes tramadol Allergy Intermediate THROAT ITCHING 10/03/17 Yes Uncoded Allergies Type Severity Reaction Last Updated Verified EGG SMELLER WIPES Allergy Intermediate FACIAL SWELLING 11/30/19 Physical Exam Physical Exam Constitutional: Well developed, well nourished, no acute distress, non-toxic appearance. [] HENT: Normocephalic, atraumatic, bilateral external ears normal, oropharynx moist, no oral exudates, nose normal. [] Eyes: PERRLA, EOMI, conjunctiva normal, no discharge. [] Neck: Normal range of motion, no tenderness, supple, no stridor. [] Cardiovascular:Heart rate regular rhythm, no murmur [] Lungs & Thorax: Bilateral breath sounds clear to auscultation [] Abdomen: Bowel sounds normal, soft, no tenderness, no masses, no pulsatile masses. [] Skin: Warm, dry, no erythema, no rash. [] Back: No tenderness, no CVA tenderness. [] Extremities: No tenderness, no cyanosis, no clubbing, ROM intact, no edema. [] Neurologic: Alert and oriented X 3, normal motor function, normal sensory function, no focal deficits noted. [] Psychologic: Affect normal, judgement normal, mood normal. [] Current Patient Data Vital Signs Vital Signs Date Time Temp Pulse Resp B/P (MAP) Pulse Ox O2 Delivery O2 Flow Rate FiO2 07/13/21 16:26 84 22 135/75 (95) 99 Room Air 07/13/21 15:44 98.4 98.4 Lab Values Laboratory Tests Test 07/13/21 15:43 07/13/21 15:51 07/13/21 16:11 07/13/21 16:27 Urine Collection Type Unknown Urine Color Yellow Urine Clarity Clear Urine pH 6.0 (<5.0-8.0) Urine Specific [place] <=1.005 (1.000-1.030) Urine Protein Negative mg/dL (NEG-TRACE) Urine Glucose (UA) Negative mg/dL (NEG) Urine Ketones (Stick) Negative mg/dL (NEG) Urine Blood Negative (NEG) Urine Nitrite Negative (NEG) Urine Bilirubin Negative (NEG) Urine Urobilinogen Dipstick 0.2 mg/dL (0.2 mg/dL) Urine Leukocyte Esterase Negative (NEG) Urine RBC Occ /HPF (0-2) Urine WBC Occ /HPF (0-4) Urine Squamous Epithelial Cells Mod /LPF Urine Bacteria 0 /HPF (0-FEW) Urine Mucus Slight /LPF POC Urine HCG, Qualitative Hcg negative (Negative) White Blood Count 7.0 x10^3/uL (4.0-11.0) Red Blood Count 4.90 x10^6/uL (3.50-5.40) Hemoglobin 13.5 g/dL (12.0-15.5) Hematocrit 39.8 % (36.0-47.0) Mean Corpuscular Volume 81 fL (79-100) Mean Corpuscular Hemoglobin 27 pg (25-35) Mean Corpuscular Hemoglobin Concent 34 g/dL (31-37) Red Cell Distribution Width 14.9 % (11.5-14.5) H Platelet Count 286 x10^3/uL (140-400) Neutrophils (%) (Auto) 52 % (31-73) Lymphocytes (%) (Auto) 36 % (24-48) Monocytes (%) (Auto) 10 % (0-9) H Eosinophils (%) (Auto) 2 % (0-3) Basophils (%) (Auto) 1 % (0-3) Neutrophils # (Auto) 3.6 x10^3/uL (1.8-7.7) Lymphocytes # (Auto) 2.5 x10^3/uL (1.0-4.8) Monocytes # (Auto) 0.7 x10^3/uL (0.0-1.1) Eosinophils # (Auto) 0.1 x10^3/uL (0.0-0.7) Basophils # (Auto) 0.1 x10^3/uL (0.0-0.2) Sodium Level 137 mmol/L (136-145) Potassium Level 4.2 mmol/L (3.5-5.1) Chloride Level 104 mmol/L (98-107) Carbon Dioxide Level 22 mmol/L (21-32) Anion Gap 11 (6-14) Blood Urea Nitrogen 10 mg/dL (7-20) Creatinine 0.7 mg/dL (0.6-1.0) Estimated GFR (Cockcroft-Gault) 115.9 BUN/Creatinine Ratio 14 (6-20) Glucose Level 96 mg/dL (70-99) Calcium Level 8.9 mg/dL (8.5-10.1) Total Bilirubin 0.5 mg/dL (0.2-1.0) Aspartate Amino Transferase (AST) 18 U/L (15-37) Alanine Aminotransferase (ALT) 32 U/L (14-59) Alkaline Phosphatase 74 U/L (46-116) Troponin I High Sensitivity 5 ng/L (4-50) GU-Bme-I-Type Natriuretic Peptide 33 pg/mL (0-124) Total Protein 8.0 g/dL (6.4-8.2) Albumin 3.6 g/dL (3.4-5.0) Albumin/Globulin Ratio 0.8 (1.0-1.7) L Thyroid Stimulating Hormone (TSH) 0.529 uIU/mL (0.358-3.74) Serum Test, Qualitative Negative (NEG) SARS-CoV-2 Antigen (Rapid) Negative (NEGATIVE) Laboratory Tests 07/13/21 16:11 Laboratory Tests 07/13/21 16:11 EKG EKG Normal sinus rhythm with no ST elevation or depression and normal intervals. Radiology/Procedures Radiology/Procedures CT head showed no acute pathology however there was white matter change consistent with either migraine headache versus small vessel ischemia. Course & Med Decision Making Course & Med Decision Making Patient with multiple nonspecific symptoms the dizziness which sounds to be most consistent with orthostasis. She has a normal neurologic exam with no focal deficits noted. I will check labs imaging treat her headache and reassess. Patient's headache completely resolved with treatment emergency department and her vital signs remain normal including an improved blood pressure to 132/85. I explained the results of all test including incidental findings on the head CT and the laboratory analysis and the need for follow-up. She says she has a primary care follow-up coming up shortly and I recommended that we do not start her on blood pressure medications at this time as it could cause her blood pressure to drop too low and cause her worsening orthostasis and syncope. Patient will be discharged in stable condition with primary care follow-up pending and told to come back to emergency department sooner with worsening pain neurologic changes or other general concerns. Patient aware and agreeable with plan and verbalized understanding of the above instructions. Dragon Disclaimer Dragon Disclaimer This electronic medical record was generated, in whole or in part, using a voice recognition dictation system. Departure Departure Impression: Primary Impression: Headache Additional Impressions: Orthostatic dizziness Elevated blood pressure reading Disposition: HOME / SELF CARE / HOMELESS Condition: STABLE Referrals: UNKNOWN PCP NAME (PCP) Patient Instructions: Orthostatic Hypotension Problem Qualifiers Primary Impression: Headache Headache type: unspecified Headache chronicity pattern: acute headache Intractability: not intractable Qualified Codes: R51.9 - Headache, unspecified ANTONETTE KUMAR DO Jul 13, 2021 15:45
[2021-07-13] MEDS ORDERED: ONDANSETRON PF 4 MG/2 ML VIAL. IVP ONE (16:00)
[2021-07-13] MEDS ORDERED: MORPHINE SULFATE 4 MG/ML INJ. IV PRN (16:00)
[2021-07-13] MEDS ORDERED: KETOROLAC 30 MG/ML VIAL. IVP ONE (16:00)
[2021-07-13 16:03] LABS: BILIRUBIN,URINE NEGATIVE (NEG); CLARITY,URINE CLEAR; COLOR,URINE YELLOW; NITRITE,URINE NEGATIVE (NEG); PROTEIN,URINE NEGATIVE (NEG-TRACE); UROBILINOGEN,URINE 0.2 mg/dL (0.2 mg/dL)
[2021-07-13 16:09] LABS: BACTERIA,URINE 0 /HPF (0-FEW); RBC,URINE OCC /HPF (0-2); WBC,URINE OCC /HPF (0-4)
[2021-07-13] MEDS ORDERED: IV DEXTROSE 5%-LACT RINGERS 1,000 ML IV ONE (16:15)
[2021-07-13 16:25] LABS: BASO # 0.1 x10^3/uL (0.0-0.2); BASO % 1 % (0-3); EOS # 0.1 x10^3/uL (0.0-0.7); EOS % 2 % (0-3); HEMATOCRIT 39.8 % (36.0-47.0); HEMOGLOBIN 13.5 g/dL (12.0-15.5); LYMPH # 2.5 x10^3/uL (1.0-4.8); LYMPH % 36 % (24-48); MEAN CORPUSCULAR HEMOGLOBIN 27 pg (25-35); MEAN CORPUSCULAR HGB CONC 34 g/dL (31-37); MEAN CORPUSCULAR VOLUME 81 fL (79-100); MONO # 0.7 x10^3/uL (0.0-1.1); MONO % 10 % (0-9); NEUT # 3.6 x10^3/uL (1.8-7.7); NEUT % 52 % (31-73); PLATELET COUNT 286 x10^3/uL (140-400); RED CELL DISTRIBUTION WIDTH 14.9 % (11.5-14.5)
--- NOTE | 2021-07-13 16:30 | RAD ---
INDICATION: Reason: headache, dizziness / Spl. Instructions: / History: COMPARISON: None. TECHNIQUE: Axial CT images obtained through the head without intravenous contrast. One or more of the following individualized dose reduction techniques were utilized for this examinat ion: 1. Automated exposure control; 2. Adjustment of the mA and/or kV according to patient size; 3 . Use of iterative reconstruction technique. FINDINGS: No intracranial hemorrhage. No significant midline shift. Ventricles and sulci are unremarkable. No acute osseous abnormality. IMPRESSION: * No acute intracranial hemorrhage. * Mild scattered foci of low density within the white matter. Nonspecific in nature but can be from gliosis from chronic small vessel ischemic changes or migraine. Electronically signed by: Mars Armendariz MD (07/13/2021 4:27 PM) [id number]
[2021-07-13 16:43] LABS: CALCIUM 8.9 mg/dL (8.5-10.1); CREATININE 0.7 mg/dL (0.6-1.0); GFR 115.9; POTASSIUM 4.2 mmol/L (3.5-5.1)
[2021-07-13 16:49] LABS: ALBUMIN 3.6 g/dL (3.4-5.0); ALBUMIN/GLOBULIN RATIO 0.8 (1.0-1.7); TOTAL BILIRUBIN 0.5 mg/dL (0.2-1.0)
[2021-07-13 16:50] LABS: PREG TEST PT QUAL NEGATIVE (NEG)
--- NOTE | 2021-07-13 17:32 | EKG ---
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
[2021-07-13 17:56] VITALS: BP 118/79
--- NOTE | 2021-07-16 11:43 | NUR ---
IP: Informed pt of negative covid test. Pt verbalized understanding.
== END 2021-07-13 18:03 | disposition home or self-care (01) ==
LOC: ER 14:15
DX: R51.9 Headache, unspecified (principal); Z20.822 Contact with and (suspected) exposure to COVID-19; R42 Dizziness and giddiness; I10 Essential (primary) hypertension; G25.81 Restless legs syndrome; F17.200 Nicotine dependence, unspecified, uncomplicated
CPT/HCPCS: 36415; 70450; 80053; 81001; 81025; 83880; 84443; 84484; 84703; 85025; 87426; 93005; 96374; 96375; 99285; J1885; J2405; U0003; U0005